=== PATIENT | female | born 1970 | race Asian ===

== ENCOUNTER 2024-02-17 06:35 | Emergency (ER) | payer OTHER, SELFPAY ==
[2024-02-17 06:55] VITALS: BP 115/80
--- NOTE | 2024-02-17 07:25 | ED.MUSCINJ ---
HPI-Injury
General
Chief Complaint: Musculo-Skeletal Complaint
Source: patient
Exam Limitations: none
Time Seen by Provider: 02/17/24 07:25
Nursing documentation reviewed up to this point in time: agreed with
History of Present Illness-Injury
Initial Injury comments:
53-year-old female with no significant past medical history states she developed left shoulder pain and left-sided neck pain 3 weeks ago, she went to [facility] and had x-rays of the neck and the shoulder and other than straightening of
the lordotic curve no acute abnormality was noted according to patient. She has been taking a muscle relaxant, alternating Tylenol ibuprofen which are not helping. She does not recall any injury or overuse. She has a follow-up appointment with
[facility] in 7 days and they are currently working on getting her insurance approval for MRI. She has significantly limited range of motion and the pain keeps her up at night.. She is left handed
Past History
Past History
ED Past Medical History: None
ED Past Surgical History: Other (hernia repair)
Social History
Tobacco: Non-smoker
Alcohol: None
Personal: Single
Living: alone
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
Review of Systems
Review of Systems
Allergies reviewed?: Yes
All Other Systems: ROS reviewed and negative except as documented in HPI and ROS
: Reports flank pain
Musculoskeletal: Reports neck pain and other (L shoulder pain)
Skin: Reports no symptoms
Neurological: Reports no symptoms
Phy Exam
Physical Exam
Physical Exam:
PHYSICAL EXAMINATION:
General: no apparent distress, not acutely ill
Neuro: alert and oriented.
Cardiac: RRR.
Resp: CTA
Psychiatric: well kept. interactive and cooperative
Musculoskeletal: Non tender to palpation about the L neck and shoulder. Adduction and extension full with no pain. Pain and significantly limited ROM with abduction and forward Flexion. Moves with ease. Distal N/V intact.
UE sensation to touch equal bilaterally.
Skin: Warm, pink.
Injury Course
Orders/Labs/Results
Orders:
Orders
02/17/24 07:39
Dexamethasone [Decadron] 10 mg PO NOW STA
MDM/Problems Addressed
Differential Diagnosis Includes:
bursitis, rotator cuff injury
MDM/Problems Addressed:
53-year-old female with no significant past medical history states she developed left shoulder pain and left-sided neck pain 3 weeks ago, she went to [facility] and had x-rays of the neck and the shoulder and other than straightening of
the lordotic curve no acute abnormality was noted according to patient. She has been taking a muscle relaxant, alternating Tylenol ibuprofen which are not helping. She does not recall any injury or overuse. She has a follow-up appointment with
[facility] in 7 days and they are currently working on getting her insurance approval for MRI. She has significantly limited range of motion and the pain keeps her up at night.. She is left handed
No indication for repeat imaging
No neuro deficits
Plan: Decadron 10 mg here, Prednisone rx sent to her pharmacy, Hydrocodone Acetaminophen #6 tabs
Keep ortho appointment in 7 days.
*Critical Care Note
Total Time (30-74mins, 75-104mins- exclusive of procedures): Not Applicable
ED Attending Note
-
Portions of this chart may have been created with voice recognition software.� Occasional wrong word or��sound alike� substitutions may have occurred due to the inherent limitations of voice recognition software.
Discharge Plan
Departure
Patient Disposition: Home (Routine Discharge)
Date of Disposition: 02/17/24
Time of Disposition: 07:39
Patient with high blood pressure during this ER visit?: No
Condition: Good
Discharge Problem:
Acute pain of left shoulder
Instructions: Rotator cuff injury, Bursitis ED, Shoulder pain
Prescriptions:
New
prednisone 20 mg tablet
40 mg PO DAILY Qty: 8 0RF
hydrocodone-acetaminophen 5-325 mg tablet
1 tab PO Q8H PRN (Reason: Pain) Qty: 6 0RF
Referrals:
[facility] [Other] - Keep scheduled appt
Activity Restrictions/Additional Instructions:
As we discussed, I sent a prescription to your pharmacy for Prednisone (a steroid) to take 40 mg daily for 4 days. Start it tomorrow as you were given a dose of steroid (Decadron 10 mg) here today.
You may continue Ibuprofen and Tylenol for mild to moderate pain.
Use the D[place] (Hydrocodone) if needed for worse pain or to help the pain so you can sleep.
Keep your appointment with [facility] next Tuesday.
Although I cannot make these diagnoses, I provided you with information on Bursitis and Rotator cuff injury FYI.
Do not drive within 6 hours of taking the Hydrocodone as it can make you sleepy and slow the reflexes
Interventions
Interventions:
*Risk Screen - Suicide Last Done: 02/17/24 06:36
*Neglect/Abuse Screening Last Done: 02/17/24 07:01
Discharge Date and Time
Print Language: [id number]
[2024-02-17] MEDS: DECADRON 10 MG PO (08:12)
[2024-02-17 08:20] VITALS: BP 138/76
== END 2024-02-17 08:20 | disposition home or self-care (01) ==
LOC: EMR 06:35
PROVIDERS: EMERGENCY PHYSICIAN Emergency Medicine; FAMILY PHYSICIAN Internal Medicine
DX: M25.512 Pain in left shoulder (principal); M54.2 Cervicalgia; Z88.2 Allergy status to sulfonamides
CPT/HCPCS: 99283